=== PATIENT | female | born 1990 | race Caucasian/White ===

== ENCOUNTER 2019-03-09 10:42 | Emergency (ER) | payer MEDICAID ==
--- NOTE | 2019-03-09 13:43 | UC ---
Knee Pain HPI - HPI Summary HPI Summary: 29 y/o female presents to the [facility] c/o RT knee pain, Rt shoulder pain and RT side of neck pain s/p slipping and falling on her Rt side. pt repor - History of Current Complaint Chief Complaint: UCTrauma Stated Complaint: RT KNEE AND SHOULDER Time Seen by Provider: 03/09/19 12:37 Hx Obtained From: Patient Hx Last Menstrual Period: 02/27/19 ?: No - B/L tube ligation Onset/Duration: Sudden Onset, Lasting Hours - 3hrs ago Severity Initially: Moderate Severity Currently: Moderate Pain Intensity: 8 Pain Scale Used: 0-10 Numeric Character: Sharp Aggravating Factor(s): Movement, Weight Bearing, Prolonged Standing Alleviating Factor(s): Rest, OTC Meds - Ibuprofen PO 800mg at 1000AM Associated Signs And Symptoms: Positive: Negative, Bruising. Negative: Swelling , Redness, Numbness, Tingling Able to Bear Weight: Yes - Risk Factors Septic Arthritis Risk Factor: Negative Gout Risk Factor: Negative - Allergies/Home Medications Allergies/Adverse Reactions: Allergies Allergy/AdvReac Type Severity Reaction Status Date / Time bee pollen Allergy anaph Verified 03/09/19 10:58 epinephrine Allergy exazgerated Verified 03/09/19 10:58 errect shellfish derived Allergy anaph Verified 03/09/19 10:58 Home Medications: Home Medications Ipratropium Br (Nf)0.03% Nasal [Ipratropium [place]] 2 % BLADDER DAILY 03/09/19 [History Confirmed 03/09/19] PMH/Surg Hx/FS Hx/Imm Hx Previously Healthy: Yes - Pt denies PMHX - Surgical History Surgical History: Yes Surgery Procedure, Year, and Place: LEFT WRIST SURGERY REATTACH TENDON 11/11 @ [facility]. SINUS SURGERY POLYP REMOVAL 02/2010. WISDOM TOOTH EXTRACTION sinus polops - Family History Known Family History: Positive: None - Pt is adopted, Hypertension - Social History Occupation: Employed Full-time Lives: With Family Alcohol Use: None Alcohol Amount: Maybe one wine cooler over 5 hours only to celebrate something. Substance Use Type: None Substance Use Comment - Amount & Last Used: said her biological mother was a drug addict and so she stays away from it Smoking Status (MU): Never Smoked Tobacco Have You Smoked in the Last Year: No - Immunization History Most Recent Influenza Vaccination: 10/13/15 Most Recent Tetanus Shot: summer 2014 Most Recent Pneumonia Vaccination: unk Review of Systems All Other Systems Reviewed And Are Negative: Yes Constitutional: Positive: Negative Skin: Positive: Negative Eyes: Positive: Negative ENT: Positive: Negative Respiratory: Positive: Negative Cardiovascular: Positive: Negative Physical Exam - Summary Physical Exam Summary: Vital Signs Reviewed: Yes General: well developed, well nourished female sitting in the examining table w/ o any apparent distress Eyes: Positive: Conjunctiva Clear - PERRLA, EOMI, fundi grossly normal ENT: Positive: Normal ENT inspection, Hearing grossly normal, Pharynx normal, TMs normal Neck: Positive: Supple, Nontender, No Lymphadenopathy Respiratory: Positive: Chest nontender, Lungs clear, Normal breath sounds, No respiratory distress Cardiovascular: Positive: RRR, No Murmur, Pulses Normal, Brisk Capillary Refill Abdomen Description: Positive: Nontender, No Organomegaly, Soft. Negative: CVA Tenderness (R), CVA Tenderness (L) Bowel Sounds: Positive: Present Musculoskeletal: Positive: Strength Intact, No Edema, RT Knee: Pt is able to bear weight and ambulate with limping. No surface trauma, soft tissue swelling , or obvious effusion. No overlying erythema or warmth. The L knee is without obvious asymmetry or deformity when compared with the R knee. Decreased ROM of LF knee due to pain. No tenderness to palpation of the patella, no effusion or ballottement. No tenderness over the infrapatellar tendon. Point tenderness over the medial joint line, No tenderness over the medial or lateral tibial plateaus. No tenderness over the proximal fibular head, No tenderness, fullness or mass of the popliteal fossa. No quadriceps tenderness. No laxity of the ACL. PCL, MCL, or LCL. no collateral ligament laxity to valgus or varus stress. Negative Slava/Drawer sign. Negative Jolene. Distal motor and neurovascular status intact. RT shoulder: The R shoulder is with/without obvious asymmetry or deformity when compared to the L shoulder. posterior shoulder w/ ecchymosis and bruising , no crepitus. No bony deformity or prominence of humeral head. No erythema, warmth. No Point Tenderness to palpation over the clavicle, or scapula. positive tenderness over Acromioclavicular joint and humeral head with mild swelling, NT to palpation of the bicipital groove . NT to palpation of the muscles of the sternocleidomastoid, pectoralis, biceps/triceps, deltoid, trapezius, . Limited ROM due to pain especially in adduction and abduction.on both passive and active, internal/external rotation, flexion/extension. "empty can and drop arm test unable to perform due to pain. No axillary tenderness or lymphadenopathy. Normal sensation over the deltoid and fingers. Distal motor and neurovascular status is intact. Neurological Exam: Normal Psychological Exam: Normal Skin Exam: Normal Triage Information Reviewed: Yes Vital Signs: Initial Vital Signs Temp 98 F 03/09/19 10:52 Pulse 67 03/09/19 10:52 Resp 16 03/09/19 10:52 BP 96/65 03/09/19 10:52 Pulse Ox 99 03/09/19 10:52 Knee Pain Course/Dx - Course Course Of Treatment: RT shoulder X-ray ordered, Impression: Negative for fracture. Normal acromioclavicular and glenohumeral joint alignment. Reference the internal rotation view there is a small burden of calcific tendinopathy at the level of the infraspinatus tendon. Unremarkable soft tissue contours. Pt's Rx Ibuprofen PO and felxeril PO alleviate symptoms. Shoulder immobilized with a shoulder sling for 2-3 days. Advised to f/u with PT referral for further evaluation and Orthopedic referral if not improvement of symptoms.D/c instructions explained. Pt understood and agreed w/ plan of care. Rt knee X-ray ordered, Impression: Soft tissue swelling, no acute fracture observed. Pt most likely with a RT knee Sprain. Pt knee immobilized with CARLOS bandage and advised to use the crutches he has at home to avoid too much weight bearing. Pt given Ibuprofen PO by the nurse to alleviate symptoms. and mother advised to continue w/ Ibuprofen PO for pain. Pt advised RICE, take medication for pain and to f/u with her Orthopedic DR Chavarria in 1 week if not improvement of symptoms for further treatment. D/C instructions explained. Mother and Pt understood and agreed and left the clinic ambulating. - Differential Dx/Diagnosis Differential Diagnosis/HQI/PQRI: Abrasion, Contusion, Dislocation, Fracture ( Closed), Patellofemoral Syndrome, Sprain, Strain, Tendonitis Provider Diagnosis: Calcific tendinitis of right shoulder, Right knee injury, Right knee sprain, Neck muscle spasm Discharge - Sign-Out/Discharge Documenting (check all that apply): Patient Departure - d/c home All imaging exams completed and their final reports reviewed: Yes - Discharge Plan Condition: Stable Disposition: HOME Prescriptions: Cyclobenzaprine TAB* [Flexeril 10 MG TAB*] 10 mg PO TID PRN #21 tab PRN Reason: neck spasm Ibuprofen TAB* [Motrin TAB* 600 MG] 600 mg PO Q6H PRN #30 tab PRN Reason: Pain Patient Education Materials: Knee Sprain (ED), Calcific Tendinitis (ED), Muscle Spasm (ED) Forms: *Work Release Referrals: Kelsey Schmitz MD [Primary Care Provider] - 1 Week Arcenio Gabriel MD [Medical Doctor] - 1 Week Additional Instructions: 1-Please continue taking Ibuprofen PO q6-8hrs prs after meals to alleviate pain and swelling. 2-Please apply ice, keep your knee immobilized with the splint. Avoid strenuous exercise,elevate your knee 3-Please apply ice, keep your shoulder immobilized with the shoulder sling for 3-4 days and then resume movement slowly. Avoid heavy lifting 4- Take Flexeril PO as directed to alleviate neck spasm. Please do not drive if medication is causing drowsiness 5- Please f/u with Orthopedic Dr Gabriel or your PCP in 1 week is not improvement of symptoms for further evaluation and treatment. 6- Please apply Triple antibiotic oint BID x 7 days over the abrasion to prevent infection - Billing Disposition and Condition Condition: STABLE Disposition: Home
[2019-03-09 13:56] VITALS: BP 100/72
== END 2019-03-09 14:17 | disposition home or self-care (01) ==
LOC: UCEAST 10:42
DX: S83.91XA Sprain of unspecified site of right knee, initial encounter (principal); W01.0XXA Fall on same level from slipping, tripping and stumbling without subsequent striking against object, initial encounter; Y92.9 Unspecified place or not applicable; M75.31 Calcific tendinitis of right shoulder; M54.2 Cervicalgia; M62.838 Other muscle spasm; Z88.8 Allergy status to other drugs, medicaments and biological substances; Z91.030 Bee allergy status; Z91.013 Allergy to seafood
CPT/HCPCS: 72050; 99213; G0463

== ENCOUNTER 2019-04-09 09:44 | Emergency (ER) | payer MEDICAID, OTHER ==
[2019-04-09 10:23] VITALS: BP 98/67
--- NOTE | 2019-04-09 10:39 | UC ---
Knee Pain HPI - HPI Summary HPI Summary: 29 -year-old female who sprained her knee approximately 3 weeks ago. She did follow-up with an orthopedist who told her to wear a knee brace for 4 weeks. Her x-ray at that time was negative. Yesterday she caught her shoelace on a nail that was sticking out from a food been at [facility] and twisted her knee and then fell onto her right knee. She complains of continued pain over the medial aspect of her right knee and over the patella. - History of Current Complaint Chief Complaint: UCLowerExtremity Stated Complaint: KNEE INJURY Time Seen by Provider: 04/09/19 10:28 Hx Obtained From: Patient Hx Last Menstrual Period: 03/23/19 ?: No Onset/Duration: Sudden Onset Severity Initially: Moderate Severity Currently: Mild Pain Intensity: 6 Character: Dull, Aching Aggravating Factor(s): Movement Alleviating Factor(s): Rest Associated Signs And Symptoms: Positive: Swelling Able to Bear Weight: Yes - Allergies/Home Medications Allergies/Adverse Reactions: Allergies Allergy/AdvReac Type Severity Reaction Status Date / Time bee pollen Allergy anaph Verified 04/09/19 10:23 epinephrine Allergy exazgerated Verified 04/09/19 10:23 errect shellfish derived Allergy anaph Verified 04/09/19 10:23 Home Medications: Home Medications Cyclobenzaprine TAB* [Flexeril 10 MG TAB*] 10 mg PO BID PRN 04/09/19 [History Confirmed 04/09/19] PMH/Surg Hx/FS Hx/Imm Hx Previously Healthy: Yes - Surgical History Surgical History: Yes Surgery Procedure, Year, and Place: LEFT WRIST SURGERY REATTACH TENDON 11/11 @ [facility]. SINUS SURGERY POLYP REMOVAL 02/2010. WISDOM TOOTH EXTRACTION sinus polops - Family History Known Family History: Positive: None - Pt is adopted, Hypertension - Social History Occupation: Employed Full-time Alcohol Use: None Alcohol Amount: Maybe one wine cooler over 5 hours only to celebrate something. Substance Use Type: None Substance Use Comment - Amount & Last Used: said her biological mother was a drug addict and so she stays away from it Smoking Status (MU): Never Smoked Tobacco Have You Smoked in the Last Year: No - Immunization History Most Recent Influenza Vaccination: 09/10/15 Most Recent Tetanus Shot: summer 2014 Most Recent Pneumonia Vaccination: unk Review of Systems All Other Systems Reviewed And Are Negative: Yes Motor: Positive: Negative Neurovascular: Positive: Negative Musculoskeletal: Positive: Other: - Pain with flexion and extension. Complaints of pain to the oral aspect of her right knee and mild pain over the patella. Neurological: Positive: Negative Is Patient Immunocompromised?: No Physical Exam Triage Information Reviewed: Yes Appearance: Well-Appearing, No Pain Distress, Well-Nourished Vital Signs: Initial Vital Signs Temp 98.2 F 04/09/19 10:19 Pulse 75 04/09/19 10:19 Resp 18 04/09/19 10:19 BP 98/67 04/09/19 10:19 Pulse Ox 97 04/09/19 10:19 Vital Signs Reviewed: Yes Musculoskeletal: Positive: Strength Intact - There does appear to be some swelling over the patella with tenderness on firm palpation of the patella. I believe the patellar ligaments are intact however she does have pain on palpation to the proximal patellar ligament. Deformity, erythema, or bruising is noted., ROM Intact - Range of motion intact but with some pain laterally. Neurological: Positive: Alert, Muscle Tone Normal Knee Pain Course/Dx - Course Course Of Treatment: Knee X-ray: FINDINGS: The visualized bones are well-corticated and properly aligned. The joint spaces are properly maintained. There is no radiographic evidence of joint effusion. There is no acute fracture, dislocation or other focal bony abnormality. IMPRESSION: Normal knee radiograph as described above. - Differential Dx/Diagnosis Provider Diagnosis: Strain of right knee Discharge - Sign-Out/Discharge Documenting (check all that apply): Patient Departure All imaging exams completed and their final reports reviewed: Yes - Discharge Plan Condition: Fair Disposition: HOME Patient Education Materials: Knee Pain (ED) Forms: *Work Release Referrals: Kelsey Schmitz MD [Primary Care Provider] - Lisa Alfonso MD [Medical Doctor] - Additional Instructions: Keep the knee brace on for comfort. Take Motrin every 8 hours with food. Apply ice over the next 24-48 hours. Follow-up with the orthopedist in approximately 3 or 4 days if no improvement. - Billing Disposition and Condition Condition: FAIR Disposition: Home
== END 2019-04-09 11:30 | disposition home or self-care (01) ==
LOC: UCEAST 09:44
DX: S86.911A Strain of unspecified muscle(s) and tendon(s) at lower leg level, right leg, initial encounter (principal); X50.1XXA Overexertion from prolonged static or awkward postures, initial encounter; W18.39XA Other fall on same level, initial encounter; Y92.512 Supermarket, store or market as the place of occurrence of the external cause; Z88.8 Allergy status to other drugs, medicaments and biological substances; Z91.030 Bee allergy status; Z91.013 Allergy to seafood
CPT/HCPCS: 99211; G0463

== ENCOUNTER 2019-10-23 09:22 | Emergency (ER) | payer MEDICAID, OTHER ==
--- OUTSIDE RECORDS SUMMARY | 2019-10-23 09:32 | XMS REPORT | Continuity of Care Document ---
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 Suspension wk rebate: rxbin: [id number], rxpcn: [id number], rxgrp: [id number], tank assembler: [id number]), id# [id number] Prednisone 1 by mouth every 3tabs Hussein Romo, 08/24/2019 10mg Tablets morning M.D. History Medications No Active Medications Unknown 08/24/2019 - 08/24/2019 Immunizations Description No Information Available Vital Signs Date Vital Result Comment 08/24/2019 4:22pm Weight 136.00 lb Height 61 inches 5'1" BMI (Body Mass Index) 25.7 kg/m2 BP Systolic 103 mmHg BP Diastolic 67 mmHg Heart Rate 70 /min O2 % BldC Oximetry 96 % Body Temperature 98.3 F Pain Level 6 06/17/2018 9:26am Weight 132.00 lb Height 61 inches 5'1" BMI (Body Mass Index) 24.9 kg/m2 BP Systolic 102 mmHg BP Diastolic 65 mmHg Heart Rate 71 /min O2 % BldC Oximetry 97 % Body Temperature 97.4 F Pain Level 0 Results Description No Information Available Procedures Description No Information Available Medical Devices Description No Information Available Encounters Type Date Location Provider Dx Diagnosis Office Visit 08/24/2019 Main Office Marlene Jimenez, H60.91 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
--- OUTSIDE RECORDS SUMMARY | 2019-10-23 09:32 | XMS REPORT | Continuity of Care Document ---
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 Problems Description No Information Available Social History Type Date Description Comments Sex Female Tobacco Use Start: Unknown Never Smoked Cigarettes ETOH Use Never used alcohol Recreational Drug Use Never Used Drugs Allergies, Adverse Reactions, Alerts Active Allergies Reaction Severity Comments Date Betadine Severe Rash 02/12/2016 Epinephrine 08/19/2016 Inactive Allergies NKDA 03/20/2009 Medications Description No Active Medications Immunizations Description No Information Available Vital Signs [...] Medical Devices Description No Information Available Encounters Description No Information Available Assessments Description No Information Available Plan of Treatment No Information Available Functional Status Description No Information Available Mental Status Description No Information Available Referrals Description No Information Available
--- OUTSIDE RECORDS SUMMARY | 2019-10-23 09:32 | XMS REPORT | Continuity of Care Document ---
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
[2019-10-23 09:36] VITALS: BP 99/65
--- NOTE | 2019-10-23 09:42 | UC ---
Epistaxis Nasal HPI - HPI Summary HPI Summary: 29-year-old female presents for recurrent nosebleeds over the past 2 days. Patient states that 2 days ago she woke up with a spontaneous nosebleed which she was able to stop using direct pressure however says that she had several more nosebleeds throughout the day which stopped easily with direct pressure. States yesterday did not have any episodes but this morning she again had an episode but again was able to stop with direct pressure. Patient also reports some lightheadedness especially with change in position. No known trauma. Patient states that she has forced hot air heating in her home. Has had sinus surgery [address] Romo in [place] for nasal polyps. No known personal or family history of bleeding disorders however patient does report she is adopted and does not know her family history. Reports past history of anemia and is currently taking iron supplements. Last had her blood levels checked 8 months ago. Has appointment today for lab work and is to follow-up with her primary care provider next week. No known history of low platelet count. Denies fever , chills, nasal congestion, sinus pressure, ear pain, sore throat, or cough. - History of Current Complaint Chief Complaint: UCGeneralIllness Stated Complaint: NOSE BLEEDS,DIZZINESS Hx Obtained From: Patient Hx Last Menstrual Period: 09/29/19 Pain Intensity: 1 - Allergies/Home Medications Allergies/Adverse Reactions: Allergies Allergy/AdvReac Type Severity Reaction Status Date / Time bee pollen Allergy anaph Verified 10/23/19 09:36 epinephrine Allergy exazgerated Verified 10/23/19 09:36 errect shellfish derived Allergy anaph Verified 10/23/19 09:36 PMH/Surg Hx/FS Hx/Imm Hx Previously Healthy: Yes - Denies significant PMH - Surgical History Surgical History: Yes Surgery Procedure, Year, and Place: LEFT WRIST SURGERY REATTACH TENDON 11/11 @ [facility]. SINUS SURGERY POLYP REMOVAL 02/2010. WISDOM TOOTH EXTRACTION sinus polops - Family History Known Family History: Positive: None - Pt is adopted, Hypertension - Social History Alcohol Use: None Alcohol Amount: Maybe one wine cooler over 5 hours only to celebrate something. Substance Use Type: None Substance Use Comment - Amount & Last Used: said her biological mother was a drug addict and so she stays away from it Smoking Status (MU): Never Smoked Tobacco Have You Smoked in the Last Year: No - Immunization History Most Recent Influenza Vaccination: 09/10/15 Most Recent Tetanus Shot: summer 2014 Most Recent Pneumonia Vaccination: unk Review of Systems All Other Systems Reviewed And Are Negative: Yes Constitutional: Negative: Fever, Chills Skin: Positive: Negative Eyes: Negative: Drainage, Eye Redness ENT: Positive: Epistaxis. Negative: Sore Throat, Ear Ache, Nasal Discharge, Sinus Congestion, Sinus Pain/Tenderness Respiratory: Negative: Shortness Of Breath, Cough Cardiovascular: Negative: Palpitations Gastrointestinal: Positive: Negative Genitourinary: Positive: Negative Musculoskeletal: Positive: Negative Neurological: Positive: Negative Is Patient Immunocompromised?: No Physical Exam - Summary Physical Exam Summary: GENERAL APPEARANCE: Well developed, well nourished, alert and cooperative, and appears to be in no acute distress. EYES: Conjunctiva clear. No drainage. EARS: External auditory canals and tympanic membranes clear, hearing grossly intact. NOSE: No nasal discharge. Superficial abrasion noted to the anterior nasal mucosa without acitve bleeding otherwise exam normal. THROAT: Pharynx normal. No tonsilar inflammation, swelling, exudate, or lesions. Uvula midline. NECK: Neck supple, non-tender without lymphadenopathy. CARDIAC: Normal S1 and S2. No S3, S4 or murmurs. Rhythm is regular. There is no peripheral edema, cyanosis or pallor. Extremities are warm and well perfused. Capillary refill is less than 2 seconds. Peripheral pulses intact. LUNGS: Clear to auscultation without rales, rhonchi, wheezing or diminished breath sounds. ABDOMEN: Positive bowel sounds. Soft, nondistended, nontender. No guarding or rebound. No masses or hepatosplenomegally. MUSKULOSKELETAL: ROM intact to all extremities. No joint erythema or tenderness. Normal muscular development. Normal gait. SKIN: Skin normal color, texture and turgor with no lesions or eruptions. Triage Information Reviewed: Yes Vital Signs: Initial Vital Signs Temp 97.9 F 10/23/19 09:33 Pulse 67 10/23/19 09:33 Resp 16 10/23/19 09:33 BP 99/65 10/23/19 09:33 Pulse Ox 100 10/23/19 09:33 Vital Signs Reviewed: Yes Epistaxis Nasal Course/Dx - Course Course Of Treatment: 29-year-old female presents for recurrent nosebleeds over the past 2 days. Patient states that 2 days ago she woke up with a spontaneous nosebleed which she was able to stop using direct pressure however says that she had several more nosebleeds throughout the day which stopped easily with direct pressure. States yesterday did not have any episodes but this morning she again had an episode but again was able to stop with direct pressure. Patient also reports some lightheadedness especially with change in position. No known trauma. Patient states that she has forced hot air heating in her home. Has had sinus surgery [address] Romo in [place] for nasal polyps. No known personal or family history of bleeding disorders however patient does report she is adopted and does not know her family history. Reports past history of anemia and is currently taking iron supplements. Last had her blood levels checked 8 months ago. Has appointment today for lab work and is to follow-up with her primary care provider next week. No known history of low platelet count. Denies fever , chills, nasal congestion, sinus pressure, ear pain, sore throat, or cough. Afebrile. Vital signs stable. On exam patient was noted to have a superficial abrasion to the anterior nasal mucosa without active bleeding and otherwise unremarkable exam. Patient expressed some concern that her lightheadedness may be secondary to anemia from the nosebleeds. Although I feel that this is highly unlikely I did discuss with the patient that we did not have the ability to urgently evaluate for this and that this would require admission in the emergency room. Patient states she feels a tight is not necessary as she has an appointment for lab work today and follow up with her primary care provider next week. I encouraged her to keep both of these appointments but also stressed that she should have a low threshold for evaluation in the emergency room should she have any concerns. She is to follow-up with primary care provider as scheduled. Anticipatory guidance and warning symptoms were reviewed with the patient. Verbalizes understanding and agrees with plan of care. - Differential Dx/Diagnosis Differential Diagnosis/HQI/PQRI: Coagulopathy, Epistaxis, Polyps, Sinusitis Provider Diagnosis: Epistaxis Discharge ED - Sign-Out/Discharge Documenting (check all that apply): Patient Departure All imaging exams completed and their final reports reviewed: No Studies - Discharge Plan Condition: Stable Disposition: HOME Patient Education Materials: Nosebleed (ED) Forms: *Work Release Referrals: Kelsey Schmitz MD [Primary Care Provider] - Additional Instructions: Your nose bleed was resolved at the time of exam. I am not able to assess whether your dizziness is related to the nosebleeds and with your history of anemia I am recommending that you keep your lab appointment scheduled today. To help prevent nose bleeds in the future: Avoid picking your nose. Keep the nasal passages moist using a saline nasal spray. Run a cool mist humidifier in your room at night. Avoid irritants such as smoking and chemical sprays such as air fresheners or telecommunication tower technician. First Aid for nose bleeds: Sit up and lean forwar to help prevent the blood from running down the back of your throat. Pinch your nose right at the base of the nasal bone for at least 15 minutes without releasing pressure. Apply ice to the bridge of your nose. If you are still bleeding after holding pressure for 15 minutes, try packing your nose with a cotton ball and pinch for another 15 minutes. Follow up with your primary care provider as scheduled. Seek immediate medical attention in the emergency room if you have a nose bleed that does stop despite using the techniques above, you pass out or feel as if you are going to pass out, or have any worsening of symptoms. - Billing Disposition and Condition Condition: STABLE Disposition: Home
== END 2019-10-23 10:12 | disposition home or self-care (01) ==
LOC: UCEAST 09:22
DX: R04.0 Epistaxis (principal); D64.9 Anemia, unspecified; Z91.030 Bee allergy status; Z91.013 Allergy to seafood; Z88.8 Allergy status to other drugs, medicaments and biological substances
CPT/HCPCS: 99211; G0463